=== PATIENT | female | born 1950 | race Hispanic/Latino ===

== ENCOUNTER 2016-07-15 10:34 | Day surgery (SDC) | payer OTHER ==
[2016-07-14 14:48] VITALS: BMI 41.6
[2016-07-15] MEDS ORDERED: Lactated Ringer's 1,000 ML IV ONE (10:59)
[2016-07-15] MEDS ORDERED: Propofol 10 mg/ml Inj (20 ML) ONE (11:13)
[2016-07-15] MEDS ORDERED: Midazolam 2 MG/2 ML VIAL ONE (11:14)
--- NOTE | 2016-07-15 11:24 | CP.PCM.HP ---
History of Present Illness - History of Present Illness History of Present Illness: 66yo with recent h/o minor PMB and iiregularly thickened EM on sono. Discussed options with patient and patient consented for Hysteroscopy, D&C, removal of fibroid or polyp if present. Discussed the risks of surgery and all patient questions answered. Present on Admission - Present on Admission Any Indicators Present on Admission: No History of DVT/PE: No History of Uncontrolled Diabetes: No Urinary Catheter: No Decubitus Ulcer Present: No Past Patient History - Past Medical History & Family History Past Medical History?: Yes - Past Social History Smoking Status: Former Smoker - CARDIAC Hx Cardiac Disorders: Yes Hx Hypertension: Yes - PULMONARY Hx Respiratory Disorders: No - NEUROLOGICAL Hx Neurological Disorder: No - HEENT Hx HEENT Problems: No - RENAL Hx Chronic Kidney Disease: No - ENDOCRINE/METABOLIC Hx Endocrine Disorders: Yes Hx Diabetes Mellitus Type 2: Yes Hx Hypothyroidism: Yes - HEMATOLOGICAL/ONCOLOGICAL Hx Blood Disorders: No - INTEGUMENTARY Hx Dermatological Problems: No - MUSCULOSKELETAL/RHEUMATOLOGICAL Hx Musculoskeletal Disorders: Yes Hx Arthritis: Yes - GASTROINTESTINAL Hx Gastrointestinal Disorders: No - GENITOURINARY/GYNECOLOGICAL Hx Genitourinary Disorders: No - PSYCHIATRIC Hx Psychophysiologic Disorder: No - SURGICAL HISTORY Hx Surgeries: Yes Hx Dilation and Curettage: Yes (X1) - ANESTHESIA Hx Anesthesia: Yes Hx Anesthesia Reactions: No Hx Malignant Hyperthermia: No Has any member of the family had a problem w/ anesthesia?: No Meds Allergies/Adverse Reactions: Allergies Allergy/AdvReac Type Severity Reaction Status Date / Time No Known Allergies Allergy Verified 07/14/16 10:13 Physical Exam - Constitutional Appears: Well - Head Exam Head Exam: ATRAUMATIC - Eye Exam Eye Exam: EOMI, PERRL - ENT Exam ENT Exam: Mucous Membranes Moist, Normal Exam - Neck Exam Neck exam: Positive for: Normal Inspection - Respiratory Exam Respiratory Exam: Clear to Auscultation Bilateral, NORMAL BREATHING PATTERN - Cardiovascular Exam Cardiovascular Exam: REGULAR RHYTHM - GI/Abdominal Exam GI & Abdominal Exam: Normal Bowel Sounds, Soft - Exam External exam: NORMAL EXTERNAL EXAM Speculum exam: NORMAL SPECULUM EXAM Bimanual exam: NORMAL BIMANUAL EXAM - Extremities Exam Extremities exam: Positive for: normal inspection. Negative for: calf tenderness, pedal edema, tenderness Results - Vital Signs Recent Vital Signs: Last Vital Signs Temp 98.1 F 07/15/16 10:51 Pulse 66 05/26/17 10:54 Resp 20 07/15/16 10:51 BP 131/75 07/15/16 10:51 Pulse Ox 96 07/15/16 10:51 - Labs Labs: Laboratory Results - last 24 hr 07/15/16 10:50 POC Glucose (mg/dL) 174 H Assessment & Plan - Assessment and Plan (Free Text) Assessment: Irregularly thickened endometrium Plan: As above. Hysteroscopy, D&C, possible polypectomy or myomectomy if indicated - Date & Time Date: 07/15/16 Time: 11:25
[2016-07-15] MEDS ORDERED: Chlorhexidine Gluconate 2OZ GEL TP ONE (11:30)
[2016-07-15] MEDS ORDERED: Lactated Ringer's 1,000 ML IV SCH (12:14)
[2016-07-15] MEDS ORDERED: HYDROmorphone 0.5 mg/0.5 ml ISec IVP PRN (12:14)
[2016-07-15 12:34] VITALS: RESP 18
--- NOTE | 2016-07-15 14:40 | PCM.SURG1 ---
Surgeon's Initial Post Op Note - Surgeon's Notes Surgeon: [employer] Manager: N/A Type of Anesthesia: General Endo Anesthesia Administered By: Yair Pre-Operative Diagnosis: Thickened endometrium, postmenopausal bleeding Operative Findings: Endometrium with multiple polyps and one uterine fibroid Post-Operative Diagnosis: Same + Endometrial polyp and uterine fibroid Operation Performed: Hysteroscopy, polypectomy, myomectomy, D&C Specimen/Specimens Removed: 1. Uterine polyps and fibroids 2. EMC Estimated Blood Loss: EBL {In ML}: 100 Blood Products Given: N/A Drains Used: No Drains Post-Op Condition: Good Date of Surgery/Procedure: 07/15/16 Time of Surgery/Procedure: 14:40
--- NOTE | 2016-07-15 14:41 | CP.PCM.DIS ---
Provider - Provider Date of Admission: 07/15/16 Attending physician: Mustapha Lee MD Primary care physician: Brayden Garcia MD Time Spent in preparation of Discharge (in minutes): 10 Diagnosis - Discharge Diagnosis (1) Thickened endometrium Status: Acute (2) Post-menopausal bleeding Status: Acute Hospital Course - Lab Results Lab Results: Most Recent Lab Values POC Glucose (mg/dL) 139 mg/dL (65-110) H 07/15/16 12:15 Discharge Exam - Head Exam Head Exam: ATRAUMATIC Discharge Plan - Follow Up Plan Condition: GOOD Disposition: HOME/ ROUTINE Referrals: Brayden Garcia MD [Primary Care Provider] -
--- NOTE | 2016-07-15 15:12 | OP ---
PROCEDURE DATE: 07/15/2016 PREOPERATIVE DIAGNOSES: Thickened endometrium, postmenopausal bleeding POSTOPERATIVE DIAGNOSES: Thickened endometrium, postmenopausal bleeding, plus endometrial polyps and submucosal uterine fibroid. OPERATIONS PERFORMED: Hysteroscopy, hysteroscopic myomectomy, hysteroscopic polypectomy, dilation an d curettage. COMPLICATIONS: None. SURGEON: Dr. Filiberto Lee. ANESTHESIOLOGIST: Dr. Mazariegos. ANESTHESIA: General. ESTIMATED BLOOD LOSS: 100 mL. FLUIDS: 500 mL lactated Ringers. PROCEDURE: The patient was taken to the operating room where general anesthesia was found to be adeq uate. The patient was prepped and draped in normal sterile fashion in the dorsal lithotomy position. A weighted speculum was placed in the posterior aspect of the vagina. A Gerardo retractor is placed a t the anterior surface of the vagina. The cervix was grasped at the anterior surface with a single t ooth tenaculum. The cervix was dilated with Hernandez dilators to a size of 20-Ind[place]ian. The hysteroscope was placed through the cervix into the uterine cavity and the above findings noted. The MyoSure dev ice was placed through the hysteroscope into the uterine cavity. Under direct visualization, all charline yps and 2 uterine fibroids were removed. After removal, all surgical pedicles were found to be hemos tatic. The MyoSure device and hysteroscope was removed from the uterus. The uterus was curetted and curettings sent to pathology. All instruments were removed from the patient. Both the tenaculum site and cervical os was found to be hemostatic following the procedure. The patient tolerated the procedure well. All sponge, lap, and needle counts were correct x 2. Ther e were no complications. The patient was taken to the recovery room awake and in stable condition. Mustapha Lee MD cc: [id number] TT: 07/15/2016 15:11:09 dc
[2016-07-15 16:46] VITALS: BP 113/54; PULSE 56; TEMP 98; O2SAT 100
== END 2016-07-15 16:50 | disposition home or self-care (01) ==
LOC: H.OPSURG 10:34
PROVIDERS: ATTEND Obstetrics & Gynecology
DX: N95.0 Postmenopausal bleeding (principal); R93.8 Abnormal findings on diagnostic imaging of other specified body structures; E11.9 Type 2 diabetes mellitus without complications; E03.9 Hypothyroidism, unspecified; I10 Essential (primary) hypertension; E66.9 Obesity, unspecified